=== PATIENT | male | born 1960 | race Caucasian/White ===

== ENCOUNTER 2018-10-17 01:00 | Outpatient (CLI) | payer BC, SELFPAY ==
--- NOTE | 2018-10-17 07:57 | DI.RAD_ITS ---
SYMPTOMS/DIAGNOSIS: H/O METAL REMOVED FROM EYES, PRE MRI CLEARANCE, Z98.890 ORBITS: No radiopaque foreign body is identified. IMPRESSION: Negative orbits.
== END 2018-10-17 01:20 ==
PROVIDERS: PCP Family Medicine; Visit Provider Family Medicine
DX: Z87.821 Personal history of retained foreign body fully removed
CPT/HCPCS: 70030

== ENCOUNTER 2018-10-18 00:21 | Outpatient (CLI) | payer BC, SELFPAY ==
--- NOTE | 2018-10-18 08:09 | DI.MRI_ITS ---
SYMPTOM/DIAGNOSIS: RADICULOPATHY, M54.10, LOW BACK PAIN, RECENT TRAUMA LUMBAR SPINE MRI: T 1, T 2 and STIR sagittal, T 1 coronal and T 1 and T 2 axial sequences were performed. Cysts are seen at the lower pole of the left kidney. Colonic diverticulosis is noted. There is a small left adrenal nodule, likely an adenoma. 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 There are degenerative disc changes throughout, with moderate to severe disc space narrowing and broad based endplate osteophytes. Severe neural foraminal narrowing is seen at T 11-12 secondary to a combination of disc osteophytes and facet encroachment. The facet joints encroach into the neural foramen bilaterally at T 11-12 to a moderate to severe degree. The neural foramen are patent at T 12-L 1 and L 1-2. At L 2-3, there are broad based disc osteophytes. There is moderate bilateral neural foraminal narrowing but no significant central canal stenosis. At L 3-4, there are prominent osteophytes projecting toward the left. There is also facet encroachment into the left neural foramen, combined to produce severe left neural foraminal narrowing. There is a slight degenerative scoliosis at this level. There is no significant central canal stenosis. At L 4-5, there is again loss of disc height and broad based osteophytes projecting greatest toward the left side. There is moderate left neural foraminal narrowing but no significant central canal stenosis. There is mild right neural foraminal narrowing. At L 5-S 1, there is disc bulging greater toward the right causing severe right neural foraminal narrowing. There is moderate left neural foraminal narrowing but no significant central canal stenosis. The marrow signal shows peridiscal degenerative signal changes. IMPRESSION: Severe degenerative disc changes throughout with multi level neural foraminal narrowing. No disc herniation or significant central canal stenosis is seen.
== END 2018-10-18 00:41 ==
PROVIDERS: PCP Family Medicine; Visit Provider Family Medicine
DX: M54.5 Low back pain (principal); M51.37 Other intervertebral disc degeneration, lumbosacral region; M54.17 Radiculopathy, lumbosacral region
CPT/HCPCS: 72148

== ENCOUNTER 2019-10-30 01:18 | Outpatient (CLI) | payer MEDICAID, SELFPAY ==
[2019-10-30 09:26] LABS: Anion Gap 9.4 mmol/L (3-11); BUN 20 mg/dL (7-18); CO2 29.6 mmol/L (21.0-32.0); CREATININE 0.85 mg/dL (0.70-1.30); Chloride 102 mmol/L (98-107); Glucose 111 mg/dL (74-106); Potassium 3.7 mmol/L (3.5-5.1); Sodium 141 mmol/L (136-145)
== END 2019-10-30 01:38 ==
PROVIDERS: PCP Family Medicine; Visit Provider Family Medicine
DX: I10 Essential (primary) hypertension (principal)
CPT/HCPCS: 36415; 80048

== ENCOUNTER 2020-04-24 04:06 | Outpatient (CLI) | payer MEDICAID, SELFPAY ==
[2020-04-24 08:49] LABS: Uric Acid 5.2 mg/dL (3.5-7.2)
== END 2020-04-24 04:26 ==
PROVIDERS: PCP Nurse Practitioner; Visit Provider Family Medicine
DX: M10.9 Gout, unspecified (principal)
CPT/HCPCS: 36415; 84550

== ENCOUNTER 2020-10-26 15:48 | Emergency (ER) | payer MEDICAID, SELFPAY ==
[2020-10-26 15:58] VITALS: BP 189/111; PULSE 88; TEMP 36.8; O2SAT 95
--- NOTE | 2020-10-26 16:00 | DI.RAD_ITS ---
EXAM: XR FINGER LT LITTLE EXAM DATE/TIME: CLINICAL HISTORY: trauma, swelling. TECHNIQUE: 2D digital imaging was performed. COMPARISON: None. FINDINGS: BONES: No definite acute fracture is identified. However, portions of the head of the proximal phala nx and base of the middle phalanx are overlapping and a fracture may be obscured. No bony destructiv e lesion is seen. JOINTS: There is a dorsal dislocation at the PIP joint of the left little finger. SOFT TISSUE: Soft tissue swelling of the left little finger. IMPRESSION: Dorsal dislocation of the PIP joint of the left little finger. Please see the above discussion for c omplete details. DATA REPOSITORY: RADIATION DOSE DELIVERED:
[2020-10-26] MEDS: Ibuprofen 800 MG TAB PO (16:17)
--- NOTE | 2020-10-26 16:38 | ED.GENADUL_ITS ---
Discharge Plan Disposition Patient Disposition: HOME Condition: Improving Discharge Details Clinical Impression: Dislocation of finger PIP joint Primary Care Provider: Stefanie Parker ED Provider: Margy Aviles Home Meds and New Rx's Prescriptions: No Action cyanocobalamin (vitamin B-12) 1,000 mcg tablet 1,000 mcg PO DAILY Qty: 90 RF: 4 acetaminophen [Tylenol Extra Strength] 500 MG tablet 2 tab PO QD PRN RF: 0 naproxen sodium [Aleve] 220 MG capsule 220 - 440 mg PO BID PRN RF: 0 amlodipine 5 mg tablet 5 mg PO DAILY Qty: 90 RF: 3 losartan 100 mg tablet 100 mg PO DAILY Qty: 90 RF: 4 Discharge Instructions Instructions: Finger Dislocation (ED) Additional Instructions: keep finger elevated to reduce swelling and throbbing ice finger 20 minutes every few hours for next 1-2 days keep finger splint until you see orthopedics Referrals: [facility] [Provider Group] (call for follow up) Medical Decision Making patient presents with isolated finger injury, xray shows dorsal dislocation. finger block using 4 ml of lidocaine 1 % with good effect finger reduced and lea taped by Dr Ventura after I attempted and failed. pos t reduction films obtained. will f/u prn Medical Records Medical records reviewed: Yes I reviewed the patient's medical records. Medical records narrative: Patient Name: ALEE TYSON #: [id number]: ER Ordering Provider: Margy Aviles NPAccount #: [id number]: [facility] ER Primary Care Provider: Stefanie Parker NPDate of Exam: 10/26/20ex: M Admission Date: 10/26/20 : 1960 Age: 60 Exam(s) a RAD:XR finger LT little EXAM: XR FINGER LT LITTLE EXAM DATE/TIME: CLINICAL HISTORY: trauma, swelling. TECHNIQUE: 2D digital imaging was performed. COMPARISON: None. FINDINGS: BONES: No definite acute fracture is identified. However, portions of the head of the proximal phalanx and base of the middle phalanx are overlapping and a fracture may be obscured. No bony destructive lesion is seen. JOINTS: There is a dorsal dislocation at the PIP joint of the left little finger. SOFT TISSUE: Soft tissue swelling of the left little finger. IMPRESSION: Dorsal dislocation of the PIP joint of the left little finger. Please see the above discussion for complete details. Patient Name: ALEE TYSON #: [id number]: ER Ordering Provider: Margy Aviles NPAccount #: [id number]: REG ER Primary Care Provider: Stefanie Parker NPDate of Exam: 10/26/20ex: M Admission Date: 10/26/20 : 1960 Age: 60 Exam(s) a RAD:XR finger LT little post reduc EXAM: XR FINGER LT LITTLE POST REDUC EXAM DATE/TIME: CLINICAL HISTORY: reduced. TECHNIQUE: 2D digital imaging was performed. COMPARISON: None. FINDINGS: BONES: No acute fracture is present. No bony destructive lesion is seen. JOINTS: There has been successful reduction of the previously seen dislocation at the PIP joint of the left 5th finger. SOFT TISSUE: Normal. IMPRESSION: Successful reduction of the PIP joint of the left 5th finger. No acute fracture. HPI General Date/Time Provider Initiated Documentation: 10/26/20 16:38 . Limitations to Documentation: no limitations . Information obtained by: patient . HPI Narrative: patient with an injury to his left 5th digit, hyperextension, while at work (self-imployed), no other injury, is unable to bend finger. Related Data Home Medications Medication Instructions Recorded Confirmed acetaminophen [Tylenol Extra 2 tab PO QD PRN 03/23/13 10/26/20 Strength] naproxen sodium [Aleve] 220 - 440 mg PO BID PRN 12/31/13 10/26/20 cyanocobalamin (vitamin B-12) 1,000 mcg PO DAILY #90 tab 07/18/18 10/26/20 1,000 mcg tablet amlodipine 5 mg tablet 5 mg PO DAILY #90 tab 10/23/20 10/26/20 losartan 100 mg tablet 100 mg PO DAILY #90 tab 10/23/20 10/26/20 Previous Rx's Medication Instructions Recorded cyanocobalamin (vitamin B-12) 1,000 mcg PO DAILY #90 tab 07/18/18 1,000 mcg tablet amlodipine 5 mg tablet 5 mg PO DAILY #90 tab 10/23/20 losartan 100 mg tablet 100 mg PO DAILY #90 tab 10/23/20 Allergies Allergy/AdvReac Type Severity Reaction Status Date / Time lisinopril AdvReac cough Verified 10/26/20 16:02 General Stated Complaint: Orthopedic ZAN: 4 Review of Systems Constitutional Constitutional: Denies fever(s) Musculoskeletal Musculoskeletal: Reports deformity, Reports arthralgias, Reports joint swelling and Reports limited range of motion Integumentary/Breasts Skin/Breast: Denies new lesions and Denies rash [facility] Surgical History (Updated 10/31/19 @ 08:36 by Alee Ga MD) Arthroscopy, Shoulder (06/12/15) [facility]; RIGHT Colonoscopy - IV Sedation (05/31/13) DR. Bebe AG; NORMAL Spinal Fusion (~04/2010) FA Family History Mother Essential hypertension Heart disease Father Lung cancer Sister Essential hypertension Sister No problems noted. Brother Diabetes Brother Essential hypertension Brother No problems noted. Social History (Updated 04/02/20 @ 13:56 by Antoine Marino) Smoking/Tobacco Use Status: Never Smoking risk assessment performed?: Yes Alcohol Intake: current Alcohol Intake frequency: 0-2 drinks per day Alcohol t ype: hard liquor Drug use: Never Substance use type: does not use Caregiver/Support person: No Household members: spouse Housing: house Communication Needs: None Do you need help understanding health information?: Always current occupation: [employer] Pets and animals: Yes (DOG AND HORSES) Pets and animals: dog(s) Sexually active: Yes Do you think of yourself as: straight/heterosexual Current gender identity: male What is your relationship status?: How often do you talk on the phone with friends or family?: three or more times per week How often do you get together with friends or relatives?: three or more times per week How often do you attend latter-day or hinduism services?: 1-3 times per year Do you belong to any clubs or organized social groups?: no Panel score (0-1 are the most socially isolated patients): 2 What type of physical activity do you participate in: other Details: work Frequency: daily Fern/Gnosticist: Church Special fern needs: No Seatbelt use: always Helmet use: Yes Helmet use: sometimes 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 Do you feel safe at home: Yes Do you feel safe in your relationship?: Yes Exam Const General: cooperative, healthy appearing, comfortable and no acute distress Nutritional Appearance: average body habitus Orientation: alert, awake and oriented x3 Extrem General: abnormal to inspection and abnormal ROM Left upper extremity: hand Details: abnormal ROM of finger (dorsal pip joint dislocation) Details: pain with active ROM and unable to flex or extend Course Vital Signs Vital signs: Vital Signs Temperature 36.8 C 10/26/20 15:58 Pulse 88 10/26/20 15:58 Blood Pressure 189/111 H 10/26/20 15:58 Pulse Oximetry 95 10/26/20 15:58 Temperature 36.8 C 10/26/20 15:58 Temperature Source Temporal Artery Scan 10/26/20 15:58 Pulse 88 10/26/20 15:58 Respiratory Effort Non-Labored 10/26/20 16:00 Blood Pressure 189/111 H 10/26/20 15:58 Blood Pressure Position Sitting 10/26/20 15:58 Pulse Oximetry 95 10/26/20 15:58 Oxygen Delivery Method Room Air 10/26/20 15:58 Oxygen Flow Rate 0 10/26/20 15:58 Pain Level 5 10/26/20 16:17
--- NOTE | 2020-10-26 16:42 | DI.VRAD_ITS ---
PROCEDURE INFORMATION: Exam: XR Left Finger(s) Exam date and time: 10/26/2020 4:32 PM Age: 60 years old Clinical indication: Finger(s); Patient HX: Pain left little finger. Dropped tire on finger today. TECHNIQUE: Imaging protocol: XR Left fingers. Views: Minimum 2 views. COMPARISON: No relevant prior studies available. FINDINGS: Bones/joints: There is complete dorsal dislocation of the left finger at the level of the 5th proximal interphalangeal joint. Questionable nondisplaced fracture of the lateral aspect of the proximal phalanx at the level of the joint. Soft tissues: Normal. IMPRESSION: Complete dorsal dislocation of the left 5th PIP with questionable nondisplaced proximal phalangeal fracture. Dictated and Authenticated by: Oscar Jacob MD. Ordering:COSTA Ji MD
--- NOTE | 2020-10-26 17:00 | DI.RAD_ITS ---
EXAM: XR FINGER LT LITTLE POST REDUC EXAM DATE/TIME: CLINICAL HISTORY: reduced. TECHNIQUE: 2D digital imaging was performed. COMPARISON: None. FINDINGS: BONES: No acute fracture is present. No bony destructive lesion is seen. JOINTS: There has been successful reduction of the previously seen dislocation at the PIP joint of th e left 5th finger. SOFT TISSUE: Normal. IMPRESSION: Successful reduction of the PIP joint of the left 5th finger. No acute fracture. DATA REPOSITORY: RADIATION DOSE DELIVERED:
--- NOTE | 2020-10-26 17:40 | DI.VRAD_ITS ---
PROCEDURE INFORMATION: Exam: XR Left Finger(s) Exam date and time: 10/26/2020 5:11 PM Age: 60 years old Clinical indication: Other: Post reduction TECHNIQUE: Imaging protocol: XR Left fingers. Views: Minimum 2 views. COMPARISON: CR XR FINGER LT LITTLE 10/26/2020 4:31 PM FINDINGS: Bones/joints: The left 5th finger is now anatomically aligned following dislocation reduction. No fracture deformity can be identified. Soft tissues: Normal. IMPRESSION: Reduced 5th PIP dislocation. Negative for acute fracture. Dictated and Authenticated by: Oscar Jacob MD. Ordering:COSTA Ji MD
[2020-10-26 17:57] VITALS: BP 178/108; PULSE 75; RESP 18; TEMP 36.6; O2SAT 97
[2020-10-26 18:09] VITALS: BP 178/108; PULSE 75; RESP 18; TEMP 36.6; O2SAT 97
== END 2020-10-26 18:00 | disposition home or self-care (01) ==
PROVIDERS: Emergency Provider Nurse Practitioner Acute Care; PCP Nurse Practitioner
DX: S63.281A Dislocation of proximal interphalangeal joint of left index finger, initial encounter (principal); X50.9XXA Other and unspecified overexertion or strenuous movements or postures, initial encounter
CPT/HCPCS: 26770; 73140

== ENCOUNTER 2020-11-10 03:23 | Outpatient (CLI) | payer MEDICAID, SELFPAY ==
[2020-11-10 09:39] LABS: Hemoglobin A1C 5.7 % (<5.7)
[2020-11-10 10:05] LABS: CREATININE 0.72 mg/dL (0.70-1.30)
[2020-11-10 17:34] LABS: PSA, Screening 1.4 ng/mL (0.0-3.5)
== END 2020-11-10 03:43 ==
PROVIDERS: PCP Nurse Practitioner; Visit Provider Nurse Practitioner
DX: I10 Essential (primary) hypertension (principal); Z12.5 Encounter for screening for malignant neoplasm of prostate; Z13.1 Encounter for screening for diabetes mellitus
CPT/HCPCS: 36415; 84153; 82565; 83036

== ENCOUNTER 2021-07-12 09:06 | Outpatient (CLI) | payer MEDICAID, SELFPAY ==
--- NOTE | 2021-07-12 09:00 | DI.RAD_ITS ---
Exam(s) XR SHOULDER RT COMPLETE 2+V EXAM: XR SHOULDER RT COMPLETE 2+V CLINICAL HISTORY: rt shoulder pain. TECHNIQUE: 2D digital imaging was performed. COMPARISON: No exams were available for comparison FINDINGS: BONES: No acute fracture is present. No bony destructive lesion is seen. JOINTS: No dislocation present. Moderately severe degenerative changes are seen at the glenohumeral joint with joint space narrowing and a large osteophyte at the inferior aspect of the humeral head. Mild hypertrophic degenerative changes are seen at the acromioclavicular joint. SOFT TISSUE: Normal. IMPRESSION: Osteoarthritis of the right shoulder. DATA REPOSITORY: RADIATION DOSE DELIVERED:
== END 2021-07-12 09:07 | disposition home or self-care (01) ==
LOC: DIORS 09:06
PROVIDERS: PCP Nurse Practitioner; Referring Provider Nurse Practitioner; Visit Provider Physician Assistant Surgical
DX: M25.511 Pain in right shoulder
CPT/HCPCS: 73030

== ENCOUNTER 2021-08-19 01:32 | Outpatient (CLI) | payer MEDICAID, SELFPAY ==
--- NOTE | 2021-08-19 08:15 | DI.RAD_ITS ---
Exam(s) RF JOINT INJECTION FLUORO GUID EXAM: RF JOINT INJECTION FLUORO GUID CLINICAL HISTORY: R SHOULDER INJ UNDER FLUORO.RT SHOULDER PAIN,M25.511 TECHNIQUE: 2D and realtime digital imaging was performed. CONTRAST MATERIAL: Water soluble contrast was administered. COMPARISON: No exams were available for comparison FINDINGS: Fluoroscopy was provided for Dr. Ventura during the performance of a right shoulder injection. Ple ase refer to the procedure report for complete details. RADIATION DOSE DELIVERED: karen Slater=14.2 mGy
[2021-08-19] MEDS: Bupivacaine 0.5% Pres-Free 10 ML VIAL 50 ML IJ (15:04)
[2021-08-19] MEDS: Omnipaque 300 MG/ML 10 ML BTL IJ (15:05)
[2021-08-19] MEDS: methylPREDNISolone ACETATE 80 MG/ML VIAL IM (15:06)
--- NOTE | 2021-08-19 16:05 | W.PROCNOTE ---
Date of service: 08/19/21 Time of Service: 14:05 Procedure Note Date of procedure: 08/19/21 Procedure: Right Shoulder Injection Surgeon/Proceduralist/Physician: Brenden Ventura Procedure Diagnosis: Right Glenohumeral Arthritis Procedure Indications: Isidoro has had persistent pain of the RIGHT shoulder. Noninvasive measures have been tried. To serve as both diagnostic and therapeutic, an injection under fluoroscopy was recommended. I had discussed the risks of the procedure and the patient elected to proceed. Procedure Description: Isidoro was greeted in the flouroscopy room. The correct side was identified and the consent was reviewed with the patient and signed. The patient was then placed in the supine position on the fluoroscopy table. The RIGHT shoulder was then prepped with Chloraprep. The anterior injection starting point was identiifed by bony landmarks and fluoroscopy. The skin and soft tissue in the tract of the injection was anesthetized with 1% Lidocaine. A spinal needle was then inserted deep into the shoulder joint at the level of the recess between the glenoid and superior humeral head. A small amount of Omnipaque solution was injected to confirm intraarticular placement. Once confirmed, the shoulder was injected with 5cc of 0.5% Bupivicaine and 80mg of Depo-Medrol. A bandaid was placed on the injection site. The patient tolerated the procedure well and noted improvement in pre-injection pain.
== END 2021-08-19 01:52 ==
PROVIDERS: PCP Nurse Practitioner; Visit Provider Student in an Organized Health Care Education/Training Program
DX: M25.511 Pain in right shoulder; M19.011 Primary osteoarthritis, right shoulder
CPT/HCPCS: 20610; 77002; J1040

== ENCOUNTER 2022-12-13 15:30 | Outpatient (REF) | payer MEDICAID, SELFPAY ==
[2022-12-13 17:14] LABS: HCT 46.8 % (40.0-50.0); HGB 15.3 g/dL (13.5-17.5); MCH 28.4 pg (27.0-33.0); MCHC 32.7 % (32.0-36.0); MCV 87 fL (80-95); RBC 5.38 10^6/uL (4.36-5.78); RDW 12.9 % (11.8-14.1); RDW-SD 40.9 fL; WBC 5.34 10^3/uL (4.4-10.8)
[2022-12-13 17:15] LABS: Platelet Count 258 10^3/uL (130-400)
[2022-12-13 17:27] LABS: ALT 34 U/L (16-63); AST 23 U/L (15-37); Albumin 4.2 g/dL (3.4-5.0); Alkaline Phosphatase 136 U/L (46-116); Anion Gap 7.7 mmol/L (3-11); BUN 11 mg/dL (7-18); CO2 29.3 mmol/L (21.0-32.0); CREATININE 0.7 mg/dL (0.70-1.30); Calcium 8.7 mg/dL (8.5-10.1); Calculated LDL 105 mg/dL (<100); Chloride 104 mmol/L (98-107); Cholesterol 163 mg/dL (<200); Estimated GFR 105.49 (mL/min/1.73m2); Glucose 111 mg/dL (74-106); HDL Cholesterol 43 mg/dL (40-60); Potassium 3.9 mmol/L (3.5-5.1); Sodium 141 mmol/L (136-145); Total Protein 6.9 g/dL (6.4-8.2); Triglyceride 77 mg/dL (<150)
[2022-12-13 18:32] LABS: Hemoglobin A1C 5.6 % (<5.7)
== END 2022-12-13 15:31 | disposition home or self-care (01) ==
LOC: LBN 15:30
PROVIDERS: PCP Nurse Practitioner Family; Visit Provider Nurse Practitioner Family
DX: I10 Essential (primary) hypertension (principal); R73.03 Prediabetes; E53.8 Deficiency of other specified B group vitamins; E78.89 Other lipoprotein metabolism disorders
CPT/HCPCS: 80053; 80061; 85027; 83036

== ENCOUNTER 2023-12-16 11:58 | Outpatient (REF) | payer BC, SELFPAY ==
[2023-12-16 16:04] LABS: Anion Gap 9.2 mmol/L (3-11); BUN 17 mg/dL (7-18); CO2 28.8 mmol/L (21.0-32.0); CREATININE 0.8 mg/dL (0.70-1.30); Chloride 105 mmol/L (98-107); Estimated GFR 100.69 (mL/min/1.73m2); Glucose 152 mg/dL (74-106); Potassium 4.1 mmol/L (3.5-5.1); Sodium 143 mmol/L (136-145)
[2023-12-16 16:24] LABS: Hemoglobin A1C 5.7 % (<5.7)
== END 2023-12-16 11:59 | disposition home or self-care (01) ==
LOC: LBN 11:58
PROVIDERS: PCP Nurse Practitioner Family; Visit Provider Nurse Practitioner Family
DX: I10 Essential (primary) hypertension (principal); R73.03 Prediabetes
CPT/HCPCS: 80048; 83036

== ENCOUNTER 2024-08-07 16:06 | Outpatient (CLI) | payer MEDICAID, SELFPAY ==
--- NOTE | 2024-08-07 10:00 | DI.RAD_ITS ---
Exam(s) XR SHOULDER RT COMPLETE 2+V EXAM: XR SHOULDER RT COMPLETE 2+V CLINICAL HISTORY: RIGHT SHOULDER PAIN. TECHNIQUE: 2D digital imaging was performed. COMPARISON: CR XR SHOULDER RT COMPLETE 2+V from 07/12/2021 FINDINGS: Two views. No evidence of acute fracture or dislocation nor abnormal soft tissue calcifications. Main finding here is again noted to be significant osteoarthritic degenerative change in the glenohum eral joint with uniform joint space narrowing and again noted is a large patrick-type osteophyte on the inferior articular surface of the humeral head. There are few degenerative subarticular cysts again noted in the inferior half of the osseous glenoid. Only mild degenerative changes are evident in th e ipsilateral AC joint. Clavicle appears unremarkable. IMPRESSION: Significant osteoarthritic degenerative changes in the right glenohumeral joint. Slight further narr owing of this joint when compared to images of 07/12/21. DATA REPOSITORY: RADIATION DOSE DELIVERED:
== END 2024-08-07 16:07 | disposition home or self-care (01) ==
LOC: DIORS 16:06
PROVIDERS: PCP Nurse Practitioner Family; Visit Provider Student in an Organized Health Care Education/Training Program
DX: M19.011 Primary osteoarthritis, right shoulder (principal)
CPT/HCPCS: 73030

== ENCOUNTER 2024-08-23 00:17 | Outpatient (CLI) | payer MEDICAID, SELFPAY ==
--- NOTE | 2024-08-23 07:30 | DI.MRI_ITS ---
Exam(s) MR UPPER JOINT RT WO EXAM: MR UPPER JOINT RT WO CLINICAL HISTORY: ? RTC TEAR,rt shoulder pain,arthritis rt shoulder,m19.011,m25.511. TECHNIQUE: Multiplanar multisequence MRI was performed. COMPARISON: Plain films 07 August 2024 FINDINGS: Exam is limited by motion particularly the fat-suppressed T2 sequences. In homogeneous fat suppressi on at the margins of the images. BONES: There is no fracture or contusion pattern. Degenerative cysts in the greater tuberosity. JOINTS:The acromioclavicular joint shows mild spurring. The glenohumeral joint shows advanced degene rative changes with prominent spurring at the inferior margin of the humeral head. Small joint effus ion. TENDONS: Supraspinatus: Partial under surface tear anteriorly versus fluid insinuating within the tendon fiber s. Some thickening consistent with tendinosis. Infraspinatus: Fluid within tendon fibers. Thickening distally consistent with tendinosis. Subscapularis: Unremarkable. Teres Minor: Unremarkable. Biceps and [place]: Unremarkable. MUSCLES: Severe atrophy of the teres minor and posterior aspect of the deltoid as well as latissimus dorsi and pectoralis major... Moderate atrophy of the subscapularis GLENOID LABRUM: Degeneration. SOFT TISSUES: Unremarkable. OTHER: Subacromial and subdeltoid bursae shows minimal fluid.. IMPRESSION: Supraspinatus and infraspinatus tendinosis. Fluid seen insinuating between fibers of the infraspinatu s muscle tendon junction. Severe muscle atrophy. Severe degenerative changes of the glenohumeral joint. DATA REPOSITORY:
== END 2024-08-23 00:37 ==
LOC: DI 00:17
PROVIDERS: PCP Nurse Practitioner Family; Visit Provider Student in an Organized Health Care Education/Training Program
DX: G89.29 Other chronic pain; M19.011 Primary osteoarthritis, right shoulder
CPT/HCPCS: 73221

== ENCOUNTER 2024-12-28 11:02 | Outpatient (REF) | payer MEDICAID, SELFPAY ==
[2024-12-28 16:12] LABS: Anion Gap 9.2 mmol/L (3-11); BUN 16 mg/dL (7-18); CO2 27.8 mmol/L (21.0-32.0); CREATININE 0.9 mg/dL (0.70-1.30); Calcium 8.8 mg/dL (8.5-10.1); Chloride 109 mmol/L (98-107); Estimated GFR 96.57 (mL/min/1.73m2); Glucose 134 mg/dL (74-106); Sodium 146 mmol/L (136-145)
[2024-12-28 16:18] LABS: Hemoglobin A1C 5.9 % (<5.7)
== END 2024-12-28 11:03 | disposition home or self-care (01) ==
LOC: LBN 11:02
PROVIDERS: PCP Nurse Practitioner Family; Visit Provider Nurse Practitioner Family
DX: I10 Essential (primary) hypertension (principal); R73.03 Prediabetes; Z11.3 Encounter for screening for infections with a predominantly sexual mode of transmission
CPT/HCPCS: 80048; 83036

== ENCOUNTER 2025-05-20 18:02 | Outpatient (REF) | payer MEDICAID, SELFPAY | END 2025-05-20 18:03 | disposition home or self-care (01) | LOC: LBN 18:02 | PROVIDERS: PCP Nurse Practitioner Family; Visit Provider Urology | DX: R35.1 Nocturia (principal) | CPT/HCPCS: 87077; 87086; 87186 ==